=== PATIENT | male | born 1965 | race Caucasian/White ===

== ENCOUNTER 2020-11-22 17:15 | Observation (INO) | payer BC ==
[~2020-11-22] VITALS: Ht 198.1 cm; Wt 106.8 kg
[2020-11-22 17:41] LABS: BASO % 0.5 % (0.0-2.0); EOS # 0.2 (0.0-0.7); EOS % 1.9 % (0-4.0); GRAN # 4.6 (1.4-6.5); GRAN % 53.3 % (42.2-75.2); HEMATOCRIT 45.1 % (42.0-52.0); HEMOGLOBIN 15.7 g/dl (13.5-18.0); LYMPH % 35.1 % (20.0-51.0); MEAN CELL VOLUME 90 fl (80.0-100.0); MEAN CORPUSCULAR HEMOGLOBIN 31 pg (27.0-31.0); MEAN CORPUSCULAR HGB CONC 35 g/dl (33.0-37.0); MEAN PLATELET VOLUME 9.5 fl (7.4-10.4); MONO # 0.8 (0.1-0.6); PLATELET COUNT 185 K/mm3 (130-400); RED BLOOD COUNT 5.02 M/mm3 (4.20-5.60); REDCELL DISTRIBUTION WIDTH-CV 12.9 % (11.5-14.5)
[2020-11-22 17:56] LABS: PROTHROMBIN TIME 11.6 SECONDS (9.7-12.8)
[2020-11-22 17:57] LABS: PARTIAL THROMBOPLASTIN TIME 28.1 SECONDS (26.0-37.0)
[2020-11-22 18:07] LABS: ALANINE AMINOTRANSFERASE 20 U/L (4-49); ALBUMIN 4.6 gm/dL (3.5-5.0); ALKALINE PHOSPHATASE 59 U/L (50-136); ANION GAP 11 mmol/L (7-16); AST,SGOT 30 U/L (15-37); BILIRUBIN,TOTAL 0.9 mg/dL (0.0-1.0); BLOOD UREA NITROGEN 21 mg/dL (9-20); CALCIUM 9.2 mg/dL (8.4-10.2); CARBON DIOXIDE 27 mmol/L (22-30); CHLORIDE 102 mmol/L (98-107); CREATININE, serum 1.07 (0.66-1.25); GLUCOSE 95 mg/dL (74-106); POTASSIUM 3.6 mmol/L (3.4-5.0); SODIUM 140 mmol/L (137-145); TOTAL PROTEIN 8.6 gm/dL (6.4-8.2)
[2020-11-22 18:23] LABS: TROPONIN-I < 0.012 ng/mL (0.000-0.035)
[2020-11-22 21:01] VITALS: BP 143/89; PULSE 75; TEMP 98.3
--- NOTE | 2020-11-22 21:15 | NUR ---
Patient to medical room 309 at this time. He is alert and oriented with no symptoms of aphasia. Neuro checks are negative with no signs of sensory deficit. Patient does not complain of any pain. Lungs are clear, HR normal/regular, no edema present. Patient is oriented to call light and room ammenities.
[2020-11-22 23:09] VITALS: BP 160/80; PULSE 71; TEMP 98.1
[2020-11-23 02:55] VITALS: BP 129/86; PULSE 75; TEMP 98.1
[2020-11-23 06:47] LABS: BASO % 0.6 % (0.0-2.0); EOS # 0.2 (0.0-0.7); EOS % 2.3 % (0-4.0); GRAN # 3.8 (1.4-6.5); GRAN % 59.2 % (42.2-75.2); HEMATOCRIT 45.4 % (42.0-52.0); HEMOGLOBIN 15.7 g/dl (13.5-18.0); LYMPH # 1.8 (1.2-3.4); LYMPH % 28.6 % (20.0-51.0); MEAN CELL VOLUME 90 fl (80.0-100.0); MEAN CORPUSCULAR HEMOGLOBIN 31 pg (27.0-31.0); MEAN CORPUSCULAR HGB CONC 35 g/dl (33.0-37.0); MEAN PLATELET VOLUME 9.7 fl (7.4-10.4); MONO # 0.6 (0.1-0.6); MONO % 9.1 % (1.7-9.3); PLATELET COUNT 170 K/mm3 (130-400); RED BLOOD COUNT 5.03 M/mm3 (4.20-5.60); REDCELL DISTRIBUTION WIDTH-CV 12.9 % (11.5-14.5)
--- NOTE | 2020-11-23 07:10 | NUR ---
Lying in bed with eyes open. Alert and oriented x4. Denies pain. Patient says that he has not had a recurrence of symptoms that he presented to ER with. Discuss with the patient that he will be having echo and MRI today. Reviewed that with the MRI he will need to be NPO. Patient verbalizes understanding and denies additional needs at this time.
[2020-11-23 07:11] LABS: CHOLESTEROL RISK RATIO 5.6; CREATININE, serum 1.01 (0.66-1.25); POTASSIUM 3.9 mmol/L (3.4-5.0)
--- NOTE | 2020-11-23 08:15 | NUR ---
Patient to MRI via wheelchair at this time.
--- NOTE | 2020-11-23 08:59 | NUR ---
Patient back to room from MRI via wheelchair at this time. Transfers self from chair to bed.
[2020-11-23 09:02] VITALS: BP 151/84; PULSE 65; TEMP 97.9
[2020-11-23] MEDS ORDERED: PRINIVIL20 MG PO (10:46)
[2020-11-23] MEDS ORDERED: LIPITOR20 MG PO (10:46)
[2020-11-23] MEDS ORDERED: PLAVIX 75MG TAB75 MG PO (10:46)
--- NOTE | 2020-11-23 10:55 | NUR ---
Shift assessment completed. Telemetry on. BP 151/84, nurse notified. Pt sitting up in bed alert and oriented. Pupils reactive. No weakness noted to extremities. Pt denies c/o pain. Pt speaks clearly and oriented.
--- NOTE | 2020-11-23 11:03 | NUR ---
[employer] attended clinical rounds with the team. The patient's was present. Neurology consulted. ST ordered.
[2020-11-23] MEDS ORDERED: ADVOCATE BLOOD1 EAC1 MC (11:15)
[2020-11-23 11:34] VITALS: BP 134/93; PULSE 73; TEMP 98.7
--- NOTE | 2020-11-23 11:45 | NUR ---
Review all discharge instructions with the patient and his . Deny questions, verbalizes understanding, and signs all discharge paperwork. Discharge packet provided to the patient. Patient will get dressed and will use call light when ready to leave.
--- NOTE | 2020-11-23 11:49 | NUR ---
Patient calls and is ready to be walked out. Patient assisted out to POV by CASSIE Carlos, with all belongings.
--- NOTE | 2020-11-23 13:25 | NUR ---
The patient discharged before this Medical Unit Secretary could complete intake.
== END 2020-11-23 11:50 | disposition home or self-care (01) ==
LOC: COL.ER 17:15 → MEDICAL 20:44
PROVIDERS: Emergency Medicine; Student in an Organized Health Care Education/Training Program; ADMIT Hospitalist
DX: R47.01 Aphasia (principal); I10 Essential (primary) hypertension; R06.83 Snoring; E78.5 Hyperlipidemia, unspecified; Z86.16 Personal history of COVID-19; Z82.3 Family history of stroke
CPT/HCPCS: 99223-AI; A9585; G0378; J1650; Q9967